=== PATIENT | female | born 1985 | race African-American/Black ===

== ENCOUNTER 2021-09-14 04:57 | Inpatient (IN) | payer BC ==
[2021-09-14 06:07] VITALS: BMI 27.4
[2021-09-14] MEDS: Lactated Ringer's 1,000 ML IV SCH ×2 (06:40→08:00)
[2021-09-14] MEDS ORDERED: Methylergonovine 0.2 MG/ML VIAL IM PRN (06:45)
[2021-09-14] MEDS ORDERED: Butorphanol Tartrate 1 MG/ML VIAL SLOW IVP PRN ×2 (06:45→14:38)
[2021-09-14] MEDS ORDERED: Ondansetron PF 4 MG/2 ML Vial IVP PRN ×2 (06:45→09:56)
[2021-09-14] MEDS ORDERED: Acetaminophen 500 MG TAB PO PRN (06:45)
[2021-09-14] MEDS ORDERED: Misoprostol 200 MCG TAB RC PRN (06:45)
[2021-09-14] MEDS ORDERED: hydrALAZINE 20 MG/ML VIAL SLOW IVP PRN ×2 (06:45→11:38)
[2021-09-14] MEDS ORDERED: NS w/ Oxytocin 30 units 500 ML IVPB SCH (06:45)
[2021-09-14] MEDS ORDERED: Lidocaine 1% (PF) 30 ML VIAL SC PRN (06:45)
[2021-09-14] MEDS ORDERED: Carboprost 250 MCG/ML AMP IM PRN (06:45)
[2021-09-14] MEDS ORDERED: NS w/ Oxytocin 30 units 500 ML IV SCH (06:45)
[2021-09-14] MEDS ORDERED: Promethazine HCl 25 MG/ML VIAL IM PRN ×2 (06:45→09:56)
[2021-09-14 07:08] LABS: Hemoglobin 10.7 g/dL (12.0-15.5); Mean Corpuscular HGB CONC 34.3 g/dL (32.0-36.0); Mean Corpuscular Hemoglobin 29.7 pg (27.0-33.0); Mean Corpuscular Volume 86.7 fl (81.6-98.3); Mean Platelet Volume 11.1 fl (7.4-10.4); Platelet Count 202 10x3/uL (150-450); RBC Distribution Width 13.3 % (11.5-14.5); White Blood Cell (WBC) Count 6.3 10x3/uL (3.5-10.5)
[2021-09-14 07:49] LABS: Hep B Surf Ag Non-Reactive S/CO (NonReactive)
[2021-09-14 07:50] LABS: Syphilis Antibody Nonreactive (Nonreactive); Syphilis Antibody Index 0.07 S/CO (<1.00 Non-Reactive)
[2021-09-14] MEDS ORDERED: Fentanyl 2 mcg/Bup 0.1% Cadd 100 ML ONE (07:51)
[2021-09-14 07:59] LABS: HBSAg Index 0.15 S/CO (0-0.99)
[2021-09-14] MEDS ORDERED: Bupivacaine 0.25% HCL 30 ML VIAL ONE (08:00)
[2021-09-14] MEDS ORDERED: Lidocaine 2% 10 ML INJ ONE (08:00)
[2021-09-14] MEDS ORDERED: Lactated Ringer's 500 ML IV PRN (09:56)
[2021-09-14] MEDS ORDERED: Moisturizing Cream (Eucerin) 113 GM JAR TOP PRN (09:56)
[2021-09-14] MEDS ORDERED: Acetaminophen 325 MG TAB PO PRN (09:56)
[2021-09-14] MEDS ORDERED: ePHEDrine Sulfate 50 MG/10 ML VIAL SLOW IVP PRN (09:56)
[2021-09-14] MEDS ORDERED: Naloxone HCl 0.4 mg/ml Vial IVP PRN ×2 (09:56)
[2021-09-14] MEDS ORDERED: diphenhydrAMINE 50 MG/ML VIAL IVP PRN (09:56)
[2021-09-14] MEDS ORDERED: Fentanyl 2 mcg/Bupivacaine 0.1% Cassette 100 ML EPIDURAL SCH (10:00)
[2021-09-14] MEDS ORDERED: Communication Order-Pharmacy FS SCH (10:00)
[2021-09-14] MEDS ORDERED: Fentanyl 100 MCG/2 ML VIAL ONE (10:44)
[2021-09-14] MEDS ORDERED: Milk Of Magnesia 30 ML UDCUP PO PRN (11:38)
[2021-09-14] MEDS ORDERED: Boostrix 0.5 ML (Tdap) VIAL IM ONE (11:38)
[2021-09-14] MEDS ORDERED: Lanolin Ointment 7 GM TUBE TOP PRN (11:38)
[2021-09-14] MEDS ORDERED: Benzocaine-Menthol 82.5 ML CAN TOP PRN (11:38)
[2021-09-14] MEDS ORDERED: Preparation H Ointment 28 GM TUBE PR PRN (11:38)
[2021-09-14] MEDS ORDERED: Bisacodyl 10 MG SUPP PR PRN (11:38)
[2021-09-14] MEDS ORDERED: diphenhydrAMINE 25 MG CAP PO PRN (11:38)
[2021-09-14] MEDS ORDERED: traMADol HCl 50 MG TAB PO PRN (11:38)
[2021-09-14 12:25] LABS: SARS-CoV-2 NAA Rapid Test Not Detected (NotDetected)
[2021-09-14] MEDS: Ibuprofen 800 MG TAB PO SCH ×2 (12:59→22:00)
[2021-09-14 17:07] LABS: HIV (1/2) Antibody/Antigen Non-Reactive (NonReactive); HIV 1/2 INDEX 0.08 S/CO (<1.00)
[2021-09-14] MEDS: Acetaminophen 325 MG TAB PO PRN (21:52)
[2021-09-14] MEDS: Docusate 100 MG CAP PO SCH (21:53)
[2021-09-14] MEDS ORDERED: Ferrous Sulfate 325 MG TAB PO SCH (22:00)
[2021-09-15] MEDS: Acetaminophen 325 MG TAB PO PRN ×3 (04:26→16:28)
[2021-09-15] MEDS: Ibuprofen 800 MG TAB PO SCH ×3 (05:29→21:46)
[2021-09-15] MEDS: Docusate 100 MG CAP PO SCH ×2 (09:15→21:46)
[2021-09-15] MEDS: Prenatal Vitamin 1 TAB PO SCH (09:15)
[2021-09-15] MEDS: Ferrous Sulfate 325 MG TAB PO SCH ×2 (09:16→21:46)
[2021-09-16] MEDS: Ibuprofen 800 MG TAB PO SCH (07:30)
[2021-09-16] MEDS: Docusate 100 MG CAP PO SCH (09:31)
[2021-09-16] MEDS: Prenatal Vitamin 1 TAB PO SCH (09:31)
[2021-09-16] MEDS: Ferrous Sulfate 325 MG TAB PO SCH (09:32)
[2021-09-16 14:06] VITALS: BP 106/61; TEMP 98.8
== END 2021-09-16 07:43 | disposition home or self-care (01) | DRG 807 ==
LOC: CSHLD/OP 04:57 → CSHLD 06:20 → CSHPED 14:09
PROVIDERS: ADMIT Obstetrics & Gynecology; ATTEND Obstetrics & Gynecology
PROC: 10E0XZZ Delivery of Products of Conception, External Approach (ICD-10-PCS; principal; 2021-09-14)
PROC: 0HQ9XZZ Repair Perineum Skin, External Approach (ICD-10-PCS; 2021-09-14)
DX: O34.211 Maternal care for low transverse scar from previous cesarean delivery (principal); Z37.0 Single live birth; Z3A.38 38 weeks gestation of pregnancy; Z20.822 Contact with and (suspected) exposure to COVID-19; O70.0 First degree perineal laceration during delivery
CPT/HCPCS: 36415; 51702; 85027; 86780; 86850; 86870; 86900; 86901; 86922; 87340; 87389; 99285; J2590; J7120; S0020; U0002